=== PATIENT | female | born 1975 | race Caucasian/White ===

== ENCOUNTER 2019-04-15 13:52 | Outpatient (CLI) | payer BC, SELFPAY ==
--- NOTE | ~2019-04-15 | CT_ITS ---
EXAMINATION: CT soft tiss nk chst ab pel wo EXAM DATE: 04/15/2019 14:31 INDICATION: Left-sided neck lump for one year. Tenderness. Shortness of breath. Weight loss. TECHNIQUE: Spiral CT of the neck, chest, abdomen and pelvis was performed without contrast. Axial, coronal and sagittal images of the neck were reviewed. Axial, coronal and sagittal images of the patito st were reviewed. Coronal maximum intensity pixel images of chest reviewed. Axial, coronal and sagi ttal images of the abdomen and pelvis were reviewed. The dose-length product (DLP) for this examinat ion was 596.63 mGy-cm. The exposure was tailored according to patient size (auto mA exposure control ), and iterative reconstruction (ASIR) was used as additional dose reduction technique. There is no prior study for comparison. FINDINGS: Paucity of fat and lack of intravenous contrast limits evaluation for detecting mildly enl arged lymph nodes or small masses. NECK: There is an externally placed marker with an unremarkable appearing left sternocleidomastoid de ep to this. There are small lymph nodes along the internal jugular chains bilaterally. No definite pa thologically enlarged lymph nodes bilaterally. The thyroid gland is unremarkable. The submandibula r and parotid glands are symmetric. The airway is unremarkable. Parapharyngeal and pre-glottic fa t planes are preserved. Limited evaluation of cervical vessels on this noncontrast study. The orb its are unremarkable. Visualized sinuses and mastoid air cells are well aerated. There is moderat e cervical spondylosis. CHEST: There is mild to moderate emphysema. Basilar linear opacities consistent with atelectasis. T here are no pleural or pericardial effusions. Tracheobronchial tree is patent. There is no medias tinal, hilar or axillary lymphadenopathy. There is no pneumothorax. Heart normal in size. No ev idence of coronary arterial calcification. ABDOMEN PELVIS: The liver, spleen, adrenal glands and pancreas are unremarkable. Gallbladder is unre markable. No biliary obstruction. There is no nephrolithiasis or hydronephrosis. The uterus is an teverted and morphologically normal. Calcifications in the pelvis are believed to be phleboliths. T he bladder is undistended at time of imaging. There is no retroperitoneal or pelvic lymphadenopathy. Possible identification of an unremarkable appendix. No pericecal inflammation. The stomach and smal l bowel are unremarkable. There is expected amount of colonic stool. No free intraperitoneal gas. There are mild bony degenerative changes. No suspicious bone lesions. IMPRESSION: 1. No lymphadenopathy or mass identified on this noncontrast study. Consider repeat imaging with int ravenous contrast if symptoms persist. 2. Mild to moderate emphysema. 3. Basilar subsegmental atelectasis. Reviewed, dictated and finalized at location A. [facility] IMPRESSION: 1. No lymphadenopathy or mass identified on this noncontrast study. Consider r epeat imaging with intravenous contrast if symptoms persist. 2. Mild to moderate emphysema. 3. Basilar subsegmental atelectasis.
== END 2019-04-15 13:53 | disposition home or self-care (01) ==
PROVIDERS: PCP Family Medicine; Visit Provider Family Medicine
DX: M79.89 Other specified soft tissue disorders (principal); R63.4 Abnormal weight loss; R97.0 Elevated carcinoembryonic antigen [CEA]; J43.9 Emphysema, unspecified; J98.11 Atelectasis
CPT/HCPCS: 70490; 71250; 74176